=== PATIENT | male | born 1940 | race African-American/Black ===

== ENCOUNTER 2016-10-04 23:04 | Inpatient (IN) | payer MEDICARE, BC ==
[~2016-10-04] VITALS: Ht 182.9 cm; Wt 80.3 kg
[~2016-10-04 23:04] MED LIST: DIPH25CA83 PO; FURO40TA5 PO; SPIR50TA26 PO
[2016-10-05 00:45] VITALS: BP 98/65
[2016-10-05] MEDS ORDERED: DIPHENHYDRAMINE 50MG/ML VIAL IV PRN (01:30)
[2016-10-05] MEDS ORDERED: ONDANSETRON HCL 4MG/2ML VIAL IV PRN (01:30)
[2016-10-05] MEDS ORDERED: PIPERACILLIN/TAZ 3.375G PREMIX 50 ML IV SCH ×2 (01:30→09:30)
[2016-10-05] MEDS ORDERED: HYDRALAZINE 20MG/ML VIAL IV PRN (01:30)
[2016-10-05] MEDS ORDERED: ACETAMINOPHEN 650MG SUPP PR PRN (01:30)
[2016-10-05] MEDS ORDERED: IPRATROPIUM/ALBUTEROL 0.5-3(2.5)MG/3ML NEB HHN PRN (01:30)
[2016-10-05] MEDS ORDERED: NITROGLYCERIN 0.4MG TABLET SL SL PRN (01:30)
[2016-10-05] MEDS ORDERED: CLONIDINE 0.1MG TABLET PO PRN (03:00)
[2016-10-05] MEDS: PIPERACILLIN/TAZ 3.375G PREMIX 50 ML IV SCH ×2 (03:18→11:09)
[2016-10-05 06:44] LABS: BASOPHILS % 0.2 % (0.0-2.0); EOSINOPHILS % 4.6 % (0.0-5.0); LYMPHOCYTES % 13.6 % (20.0-50.0); MEAN CORPUSCULAR HEMOGLOBIN 28.4 pg (28.0-32.0); MEAN CORPUSCULAR HGB CONC 32.4 g/dL (31.0-37.0); MEAN CORPUSCULAR VOLUME 87.4 fL (80.0-94.0); MEAN PLATELET VOLUME 7.7 fl (7.4-10.4); MONOCYTES % 12.9 % (2.0-8.0); NEUTROPHILS % 68.7 % (40.0-76.0); PLATELET 212 x1000/uL (130-400); RED BLOOD CELL COUNT 3.34 mill/uL (4.7-6.1); RED CELL DISTRIBUTION WIDTH 14.8 % (11.6-14.6); WHITE BLOOD COUNT 12.3 x1000/uL (4.5-11.0)
[2016-10-05 07:12] LABS: ANION GAP 12; CALCIUM 9.5 mg/dL (8.5-10.1); CARBON DIOXIDE 25 mEq/L (21-32); CHLORIDE 102 mEq/L (98-107); INDEX HEMOLYSI 1 (1-3); INDEX ICTERIC 1 (1-4); INDEX LIPEMIC 1 (1-3); UREA NITROGEN BLOOD 31 mg/dL (7-21); eGFR > 60 mL/min (>60)
[2016-10-05 08:00] VITALS: BP 98/62
[2016-10-05 08:30] LABS: HEMATOCRIT. 29.2 % (42.0-52.0); HEMOGLOBIN. 9.5 g/dL (14.0-18.0)
[2016-10-05] MEDS ORDERED: ACETYLCYSTEINE 200MG/ML 20% VIAL 4ML PO SCH (09:00)
[2016-10-05] MEDS: ENOXAPARIN 40MG/0.4ML SYR SUBCUT SCH (09:41)
[2016-10-05] MEDS: FAMOTIDINE 20MG/2ML VIAL IV SCH ×2 (09:41→20:43)
[2016-10-05] MEDS: ACETYLCYSTEINE 200MG/ML 20% VIAL 4ML PO SCH ×2 (09:42→20:43)
[2016-10-05 10:30] VITALS: BP 100/68
[2016-10-05] MEDS: DOCUSATE SODIUM 100MG CAPSULE PO SCH (17:40)
[2016-10-05 20:00] VITALS: BP 121/78
[2016-10-05 20:02] VITALS: BP 106/77
[2016-10-05] MEDS: POLYETHYLENE GLYCOL 3350 (17GM) 1 DOSE PACK PO SCH (20:43)
[2016-10-06 08:00] VITALS: BP 100/77
[2016-10-06] MEDS: ENOXAPARIN 40MG/0.4ML SYR SUBCUT SCH (08:14)
[2016-10-06] MEDS: DOCUSATE SODIUM 100MG CAPSULE PO SCH ×2 (08:14→16:20)
[2016-10-06] MEDS: FAMOTIDINE 20MG/2ML VIAL IV SCH ×2 (08:14→22:04)
[2016-10-06] MEDS ORDERED: ACETAMINOPHEN 325MG TABLET PO PRN (12:00)
[2016-10-06] MEDS: TRAMADOL 50MG TABLET PO PRN (12:37)
[2016-10-06] MEDS: MIDODRINE HCL 2.5MG TABLET PO SCH ×2 (12:38→16:20)
[2016-10-06 20:00] VITALS: BP 106/86
[2016-10-06] MEDS: POLYETHYLENE GLYCOL 3350 (17GM) 1 DOSE PACK PO SCH (21:56)
[2016-10-07 06:47] LABS: BASOPHILS % 0.5 % (0.0-2.0); EOSINOPHILS % 3.8 % (0.0-5.0); HEMATOCRIT. 29.2 % (42.0-52.0); HEMOGLOBIN. 9.4 g/dL (14.0-18.0); LYMPHOCYTES % 9.3 % (20.0-50.0); MEAN CORPUSCULAR HEMOGLOBIN 28.2 pg (28.0-32.0); MEAN CORPUSCULAR HGB CONC 32.2 g/dL (31.0-37.0); MEAN CORPUSCULAR VOLUME 87.7 fL (80.0-94.0); MEAN PLATELET VOLUME 7.8 fl (7.4-10.4); NEUTROPHILS % 77.4 % (40.0-76.0); PLATELET 246 x1000/uL (130-400); RED BLOOD CELL COUNT 3.33 mill/uL (4.7-6.1); RED CELL DISTRIBUTION WIDTH 15.7 % (11.6-14.6); WHITE BLOOD COUNT 14.4 x1000/uL (4.5-11.0)
[2016-10-07 07:14] LABS: ALANINE AMINOTRANSFERASE 12 IU/L (13-61); ALBUMIN 2.3 g/dL (3.4-5.0); ANION GAP 12; CALCIUM 9.9 mg/dL (8.5-10.1); CARBON DIOXIDE 26 mEq/L (21-32); CHLORIDE 101 mEq/L (98-107); HDL CHOLESTEROL 28 mg/dL (40-59); INDEX HEMOLYSI 1 (1-3); INDEX ICTERIC 1 (1-4); INDEX LIPEMIC 1 (1-3); IRON 36 ug/dL (50-175); LDL CHOLESTEROL 80 mg/dL (5-100); MAGNESIUM 2.4 mg/dL (1.8-2.4); PHOSPHORUS 1.5 mg/dL (2.5-4.9); TOTAL IRON BINDING CAPACITY 236 ug/dL (250-450); TRIGLYCERIDE 80 mg/dL (0-150); UREA NITROGEN BLOOD 29 mg/dL (7-21); eGFR > 60 mL/min (>60)
[2016-10-07 07:54] LABS: FOLIC ACID (FOLATE) SERUM 6.4 ng/mL (>5.38)
[2016-10-07 08:00] VITALS: BP 99/75
[2016-10-07 08:15] LABS: PROSTRATE SPECIFIC AG TOTAL 0.8 ng/mL (0.0-4.0)
[2016-10-07] MEDS ORDERED: LACTULOSE 20G/30ML UDC PO SCH (10:00)
[2016-10-07] MEDS: FAMOTIDINE 20MG/2ML VIAL IV SCH ×2 (10:15→21:05)
[2016-10-07] MEDS: ENOXAPARIN 40MG/0.4ML SYR SUBCUT SCH (10:15)
[2016-10-07] MEDS: MIDODRINE HCL 2.5MG TABLET PO SCH ×3 (10:15→18:21)
[2016-10-07] MEDS: DOCUSATE SODIUM 100MG CAPSULE PO SCH ×2 (10:15→18:21)
[2016-10-07] MEDS: POTASSIUM-SODIUM PHOSPHATE POWDER PACKET PO SCH ×2 (10:17→18:22)
[2016-10-07] MEDS: BISACODYL 10MG SUPP PR SCH (10:17)
[2016-10-07 13:00] VITALS: BP 99/65
[2016-10-07 18:15] VITALS: BP 110/72
[2016-10-07 20:23] VITALS: BP 105/80
[2016-10-07] MEDS: POLYETHYLENE GLYCOL 3350 (17GM) 1 DOSE PACK PO SCH (21:00)
[2016-10-07] MEDS: IRON SUCROSE COMPLEX 100 MG in SODIUM CHLORIDE 0.9% 100 ML IV SCH (21:05)
[2016-10-07] MEDS: MICONAZOLE NITRATE 2% OINT 71GM TOP SCH (21:06)
[2016-10-08 06:36] LABS: BASOPHILS % 0.3 % (0.0-2.0); EOSINOPHILS % 2.7 % (0.0-5.0); HEMATOCRIT. 29.6 % (42.0-52.0); HEMOGLOBIN. 9.7 g/dL (14.0-18.0); LYMPHOCYTES % 12.7 % (20.0-50.0); MEAN CORPUSCULAR HEMOGLOBIN 28.8 pg (28.0-32.0); MEAN CORPUSCULAR HGB CONC 32.7 g/dL (31.0-37.0); MEAN CORPUSCULAR VOLUME 88.1 fL (80.0-94.0); MEAN PLATELET VOLUME 7.9 fl (7.4-10.4); MONOCYTES % 10.8 % (2.0-8.0); NEUTROPHILS % 73.5 % (40.0-76.0); PLATELET 228 x1000/uL (130-400); RED BLOOD CELL COUNT 3.36 mill/uL (4.7-6.1); RED CELL DISTRIBUTION WIDTH 16.1 % (11.6-14.6); WHITE BLOOD COUNT 12.3 x1000/uL (4.5-11.0)
[2016-10-08 07:51] LABS: ANION GAP 10; CALCIUM 9.9 mg/dL (8.5-10.1); CARBON DIOXIDE 27 mEq/L (21-32); CHLORIDE 100 mEq/L (98-107); INDEX HEMOLYSI 1 (1-3); INDEX ICTERIC 1 (1-4); INDEX LIPEMIC 1 (1-3); PHOSPHORUS 2.2 mg/dL (2.5-4.9); UREA NITROGEN BLOOD 27 mg/dL (7-21); eGFR > 60 mL/min (>60)
[2016-10-08 08:00] VITALS: BP 110/71
[2016-10-08] MEDS: BISACODYL 10MG SUPP PR SCH (09:00)
[2016-10-08] MEDS: FAMOTIDINE 20MG/2ML VIAL IV SCH ×2 (09:02→21:45)
[2016-10-08] MEDS: DOCUSATE SODIUM 100MG CAPSULE PO SCH ×2 (09:02→17:16)
[2016-10-08] MEDS: MIDODRINE HCL 2.5MG TABLET PO SCH ×3 (09:03→17:17)
[2016-10-08] MEDS: POTASSIUM-SODIUM PHOSPHATE POWDER PACKET PO SCH ×2 (09:04→17:17)
[2016-10-08] MEDS: ENOXAPARIN 40MG/0.4ML SYR SUBCUT SCH (09:04)
[2016-10-08] MEDS: MICONAZOLE NITRATE 2% OINT 71GM TOP SCH ×2 (09:07→21:53)
[2016-10-08 19:45] LABS: BASOPHILS % 0.8 % (0.0-2.0); EOSINOPHILS % 1.2 % (0.0-5.0); HEMATOCRIT. 29.7 % (42.0-52.0); HEMOGLOBIN. 9.7 g/dL (14.0-18.0); MEAN CORPUSCULAR HEMOGLOBIN 28.8 pg (28.0-32.0); MEAN CORPUSCULAR HGB CONC 32.6 g/dL (31.0-37.0); MEAN CORPUSCULAR VOLUME 88.6 fL (80.0-94.0); MEAN PLATELET VOLUME 7.6 fl (7.4-10.4); MONOCYTES % 11.1 % (2.0-8.0); NEUTROPHILS % 76.9 % (40.0-76.0); PLATELET 235 x1000/uL (130-400); RED BLOOD CELL COUNT 3.35 mill/uL (4.7-6.1); RED CELL DISTRIBUTION WIDTH 16.5 % (11.6-14.6); WHITE BLOOD COUNT 14.1 x1000/uL (4.5-11.0)
[2016-10-08 20:00] VITALS: BP 119/82
[2016-10-08] MEDS: NEOMY SULF/BACITRAC ZN/POLY OINT 28GM TOP SCH (21:00)
[2016-10-08] MEDS: POLYETHYLENE GLYCOL 3350 (17GM) 1 DOSE PACK PO SCH (21:45)
[2016-10-08] MEDS: IRON SUCROSE COMPLEX 100 MG in SODIUM CHLORIDE 0.9% 100 ML IV SCH (21:45)
[2016-10-09 06:15] LABS: BASOPHILS % 0.6 % (0.0-2.0); HEMATOCRIT. 29.7 % (42.0-52.0); HEMOGLOBIN. 9.7 g/dL (14.0-18.0); LYMPHOCYTES % 11.1 % (20.0-50.0); MEAN CORPUSCULAR HEMOGLOBIN 28.8 pg (28.0-32.0); MEAN CORPUSCULAR HGB CONC 32.7 g/dL (31.0-37.0); MEAN CORPUSCULAR VOLUME 88.1 fL (80.0-94.0); MEAN PLATELET VOLUME 7.7 fl (7.4-10.4); MONOCYTES % 11.8 % (2.0-8.0); NEUTROPHILS % 74.5 % (40.0-76.0); PLATELET 236 x1000/uL (130-400); RED BLOOD CELL COUNT 3.38 mill/uL (4.7-6.1); RED CELL DISTRIBUTION WIDTH 16.8 % (11.6-14.6); WHITE BLOOD COUNT 11.7 x1000/uL (4.5-11.0)
[2016-10-09 08:00] VITALS: BP 88/58
[2016-10-09] MEDS: BISACODYL 10MG SUPP PR SCH (09:00)
[2016-10-09] MEDS: ENOXAPARIN 40MG/0.4ML SYR SUBCUT SCH (09:15)
[2016-10-09] MEDS: FAMOTIDINE 20MG/2ML VIAL IV SCH ×2 (09:15→21:58)
[2016-10-09] MEDS: MIDODRINE HCL 2.5MG TABLET PO SCH ×3 (09:16→17:05)
[2016-10-09] MEDS: POTASSIUM-SODIUM PHOSPHATE POWDER PACKET PO SCH ×2 (09:16→17:05)
[2016-10-09] MEDS: DOCUSATE SODIUM 100MG CAPSULE PO SCH ×2 (09:16→17:04)
[2016-10-09] MEDS: NEOMY SULF/BACITRAC ZN/POLY OINT 28GM TOP SCH ×2 (09:17→21:00)
[2016-10-09] MEDS: MICONAZOLE NITRATE 2% OINT 71GM TOP SCH ×2 (09:25→22:07)
[2016-10-09 20:00] VITALS: BP 106/69
[2016-10-09] MEDS: POLYETHYLENE GLYCOL 3350 (17GM) 1 DOSE PACK PO SCH (21:58)
[2016-10-09] MEDS: IRON SUCROSE COMPLEX 100 MG in SODIUM CHLORIDE 0.9% 100 ML IV SCH (21:59)
[2016-10-10 06:35] LABS: BASOPHILS % 0.7 % (0.0-2.0); EOSINOPHILS % 1.8 % (0.0-5.0); HEMATOCRIT. 28.3 % (42.0-52.0); HEMOGLOBIN. 9.3 g/dL (14.0-18.0); LYMPHOCYTES % 11.9 % (20.0-50.0); MEAN CORPUSCULAR HEMOGLOBIN 29.1 pg (28.0-32.0); MEAN CORPUSCULAR HGB CONC 32.9 g/dL (31.0-37.0); MEAN CORPUSCULAR VOLUME 88.2 fL (80.0-94.0); MONOCYTES % 12.2 % (2.0-8.0); NEUTROPHILS % 73.4 % (40.0-76.0); PLATELET 235 x1000/uL (130-400); RED BLOOD CELL COUNT 3.21 mill/uL (4.7-6.1); RED CELL DISTRIBUTION WIDTH 16.6 % (11.6-14.6)
[2016-10-10 07:06] LABS: ANION GAP 12; CARBON DIOXIDE 24 mEq/L (21-32); CHLORIDE 102 mEq/L (98-107); INDEX HEMOLYSI 1 (1-3); INDEX ICTERIC 1 (1-4); INDEX LIPEMIC 1 (1-3); MAGNESIUM 2.2 mg/dL (1.8-2.4); PHOSPHORUS 2.6 mg/dL (2.5-4.9); UREA NITROGEN BLOOD 31 mg/dL (7-21); eGFR > 60 mL/min (>60)
[2016-10-10 07:19] LABS: CALCIUM 9.7 mg/dL (8.5-10.1)
[2016-10-10 08:00] VITALS: BP 106/71
[2016-10-10] MEDS: DOCUSATE SODIUM 100MG CAPSULE PO SCH ×2 (09:16→17:23)
[2016-10-10] MEDS: MIDODRINE HCL 2.5MG TABLET PO SCH ×3 (09:16→17:23)
[2016-10-10] MEDS: ENOXAPARIN 40MG/0.4ML SYR SUBCUT SCH (09:17)
[2016-10-10] MEDS: TRAMADOL 50MG TABLET PO PRN (09:17)
[2016-10-10] MEDS: FAMOTIDINE 20MG/2ML VIAL IV SCH ×2 (09:17→22:09)
[2016-10-10] MEDS: MICONAZOLE NITRATE 2% OINT 71GM TOP SCH ×2 (09:18→21:00)
[2016-10-10] MEDS: BISACODYL 10MG SUPP PR SCH (09:18)
[2016-10-10] MEDS: NEOMY SULF/BACITRAC ZN/POLY OINT 28GM TOP SCH (09:19)
[2016-10-10 10:07] LABS: 25-HYDROXY VITAMIN D3 7.9 ng/mL (.)
[2016-10-10] MEDS: ERGOCALCIFEROL 50000UNITS CAPSULE PO SCH (13:40)
[2016-10-10] MEDS: GABAPENTIN 100MG CAPSULE PO SCH ×2 (13:41→22:09)
[2016-10-10 20:00] VITALS: BP 106/65
[2016-10-10] MEDS: IRON SUCROSE COMPLEX 100 MG in SODIUM CHLORIDE 0.9% 100 ML IV SCH (22:09)
[2016-10-10] MEDS: POLYETHYLENE GLYCOL 3350 (17GM) 1 DOSE PACK PO SCH (22:09)
[2016-10-11] MEDS: GABAPENTIN 100MG CAPSULE PO SCH ×3 (06:56→22:03)
[2016-10-11 08:00] VITALS: BP 97/66
[2016-10-11] MEDS: BISACODYL 10MG SUPP PR SCH (09:00)
[2016-10-11] MEDS: MIDODRINE HCL 2.5MG TABLET PO SCH ×3 (09:32→18:10)
[2016-10-11] MEDS: FAMOTIDINE 20MG/2ML VIAL IV SCH (09:33)
[2016-10-11] MEDS: DOCUSATE SODIUM 100MG CAPSULE PO SCH ×2 (09:33→18:10)
[2016-10-11] MEDS: ENOXAPARIN 40MG/0.4ML SYR SUBCUT SCH (09:33)
[2016-10-11] MEDS: MICONAZOLE NITRATE 2% OINT 71GM TOP SCH ×2 (09:44→22:03)
[2016-10-11 12:40] VITALS: BP 88/51
[2016-10-11 17:34] VITALS: BP 115/71
[2016-10-11] MEDS: FERROUS SULFATE 325MG TABLET PO SCH (18:10)
[2016-10-11 20:00] VITALS: BP 105/67
[2016-10-11] MEDS: POLYETHYLENE GLYCOL 3350 (17GM) 1 DOSE PACK PO SCH (22:03)
[2016-10-11] MEDS: FAMOTIDINE 20MG TABLET PO SCH (22:03)
[2016-10-12] MEDS: GABAPENTIN 100MG CAPSULE PO SCH ×3 (05:54→21:29)
[2016-10-12 06:34] LABS: BASOPHILS % 0.8 % (0.0-2.0); HEMATOCRIT. 27.6 % (42.0-52.0); LYMPHOCYTES % 13.4 % (20.0-50.0); MEAN CORPUSCULAR HGB CONC 32.5 g/dL (31.0-37.0); MEAN CORPUSCULAR VOLUME 89.2 fL (80.0-94.0); MEAN PLATELET VOLUME 8.1 fl (7.4-10.4); NEUTROPHILS % 72.8 % (40.0-76.0); PLATELET 219 x1000/uL (130-400); RED CELL DISTRIBUTION WIDTH 17.3 % (11.6-14.6); WHITE BLOOD COUNT 11.2 x1000/uL (4.5-11.0)
[2016-10-12 07:14] LABS: CALCIUM 9.7 mg/dL (8.5-10.1)
[2016-10-12 08:00] VITALS: BP 107/70
[2016-10-12] MEDS: FERROUS SULFATE 325MG TABLET PO SCH ×2 (09:39→18:36)
[2016-10-12] MEDS: MIDODRINE HCL 2.5MG TABLET PO SCH ×3 (09:39→18:37)
[2016-10-12] MEDS: DOCUSATE SODIUM 100MG CAPSULE PO SCH ×2 (09:39→18:36)
[2016-10-12] MEDS: BISACODYL 10MG SUPP PR SCH (09:39)
[2016-10-12] MEDS: FAMOTIDINE 20MG TABLET PO SCH (09:39)
[2016-10-12] MEDS: ENOXAPARIN 40MG/0.4ML SYR SUBCUT SCH (09:40)
[2016-10-12] MEDS: MICONAZOLE NITRATE 2% OINT 71GM TOP SCH ×2 (09:41→21:29)
[2016-10-12] MEDS: TAMSULOSIN HCL 0.4MG SR CAPSULE PO SCH (18:37)
[2016-10-12] MEDS: DEXT 5%/0.9% NACL 1,000 ML IV SCH (18:38)
[2016-10-12 20:37] VITALS: BP 105/74
[2016-10-12] MEDS: POLYETHYLENE GLYCOL 3350 (17GM) 1 DOSE PACK PO SCH (21:00)
[2016-10-12 23:16] LABS: CALCIUM 9.3 mg/dL (8.5-10.1)
[2016-10-13 05:34] LABS: BASOPHILS % 0.8 % (0.0-2.0); EOSINOPHILS % 2.1 % (0.0-5.0); HEMATOCRIT. 26.7 % (42.0-52.0); HEMOGLOBIN. 8.8 g/dL (14.0-18.0); LYMPHOCYTES % 13.6 % (20.0-50.0); MEAN CORPUSCULAR HEMOGLOBIN 29.3 pg (28.0-32.0); MEAN CORPUSCULAR HGB CONC 33.2 g/dL (31.0-37.0); MEAN CORPUSCULAR VOLUME 88.3 fL (80.0-94.0); MEAN PLATELET VOLUME 7.4 fl (7.4-10.4); MONOCYTES % 10.2 % (2.0-8.0); NEUTROPHILS % 73.3 % (40.0-76.0); PLATELET 177 x1000/uL (130-400); RED BLOOD CELL COUNT 3.02 mill/uL (4.7-6.1); RED CELL DISTRIBUTION WIDTH 17.1 % (11.6-14.6); WHITE BLOOD COUNT 8.9 x1000/uL (4.5-11.0)
[2016-10-13] MEDS: GABAPENTIN 100MG CAPSULE PO SCH ×3 (06:07→22:04)
[2016-10-13 06:52] LABS: CALCIUM 9.4 mg/dL (8.5-10.1)
[2016-10-13 08:00] VITALS: BP 110/69
[2016-10-13] MEDS: DOCUSATE SODIUM 100MG CAPSULE PO SCH ×2 (08:18→16:35)
[2016-10-13] MEDS: FERROUS SULFATE 325MG TABLET PO SCH ×2 (08:18→16:36)
[2016-10-13] MEDS: FAMOTIDINE 20MG TABLET PO SCH (08:18)
[2016-10-13] MEDS: MIDODRINE HCL 2.5MG TABLET PO SCH ×3 (08:19→16:36)
[2016-10-13] MEDS: TAMSULOSIN HCL 0.4MG SR CAPSULE PO SCH (08:19)
[2016-10-13] MEDS: ENOXAPARIN 40MG/0.4ML SYR SUBCUT SCH (08:20)
[2016-10-13] MEDS: MICONAZOLE NITRATE 2% OINT 71GM TOP SCH ×2 (08:20→22:04)
[2016-10-13] MEDS: DEXT 5%/0.9% NACL 1,000 ML IV SCH (08:20)
[2016-10-13] MEDS: BISACODYL 10MG SUPP PR SCH (08:21)
[2016-10-13 20:00] VITALS: BP 86/65
[2016-10-13 21:00] VITALS: BP 103/73
[2016-10-13] MEDS: POLYETHYLENE GLYCOL 3350 (17GM) 1 DOSE PACK PO SCH (21:00)
[2016-10-13 21:28] LABS: INR 1.1; PARTIAL THROMBOPLASTIN TIME 26.8 sec (24.0-34.0); PROTHROMBIN TIME 11.4 sec
[2016-10-13 21:41] LABS: AMMONIA 51 uMol/L (<32)
[2016-10-13 22:04] LABS: HEPATITIS B SURFACE ANTIGEN NEGATIVE
[2016-10-13 22:31] LABS: HEPATITIS C VIR.AB 0.12 INDEXVAL (0.00-0.80)
[2016-10-13 22:32] LABS: HEPATITIS B CORE AB IGM NEGATIVE
[2016-10-13 22:33] LABS: HEPATITIS A AB IGM NEGATIVE (NEGATIVE)
[2016-10-14] MEDS: DEXT 5%/0.9% NACL 1,000 ML IV SCH ×2 (00:20→15:58)
[2016-10-14] MEDS: GABAPENTIN 100MG CAPSULE PO SCH ×3 (06:00→21:39)
[2016-10-14] MEDS ORDERED: ALBUMIN HUMAN 25GM/100ML (25%) IV NR ×3 (07:00→20:00)
[2016-10-14 07:32] LABS: BASOPHILS % 0.5 % (0.0-2.0); HEMATOCRIT. 27.4 % (42.0-52.0); MEAN CORPUSCULAR HEMOGLOBIN 29.1 pg (28.0-32.0); MEAN CORPUSCULAR VOLUME 88.2 fL (80.0-94.0); MEAN PLATELET VOLUME 7.4 fl (7.4-10.4); MONOCYTES % 9.4 % (2.0-8.0); NEUTROPHILS % 77.1 % (40.0-76.0); PLATELET 164 x1000/uL (130-400); RED BLOOD CELL COUNT 3.11 mill/uL (4.7-6.1); WHITE BLOOD COUNT 9.2 x1000/uL (4.5-11.0)
[2016-10-14 08:00] VITALS: BP 111/70
[2016-10-14 08:08] LABS: ALBUMIN 2.3 g/dL (3.4-5.0); ANION GAP 10; CARBON DIOXIDE 25 mEq/L (21-32); CHLORIDE 104 mEq/L (98-107); INDEX HEMOLYSI 1 (1-3); INDEX ICTERIC 1 (1-4); INDEX LIPEMIC 1 (1-3); MAGNESIUM 2.2 mg/dL (1.8-2.4); UREA NITROGEN BLOOD 28 mg/dL (7-21)
[2016-10-14 08:14] LABS: ALANINE AMINOTRANSFERASE 16 IU/L (13-61); PHOSPHORUS 2.3 mg/dL (2.5-4.9); eGFR > 60 mL/min (>60)
[2016-10-14] MEDS: MIDODRINE HCL 2.5MG TABLET PO SCH ×3 (09:00→16:53)
[2016-10-14] MEDS: BISACODYL 10MG SUPP PR SCH (09:00)
[2016-10-14] MEDS: DOCUSATE SODIUM 100MG CAPSULE PO SCH ×2 (09:00→16:51)
[2016-10-14] MEDS: ENOXAPARIN 40MG/0.4ML SYR SUBCUT SCH (09:00)
[2016-10-14] MEDS: FERROUS SULFATE 325MG TABLET PO SCH ×2 (09:00→16:51)
[2016-10-14] MEDS: TAMSULOSIN HCL 0.4MG SR CAPSULE PO SCH (13:22)
[2016-10-14] MEDS: FAMOTIDINE 20MG TABLET PO SCH (13:22)
[2016-10-14] MEDS: MICONAZOLE NITRATE 2% OINT 71GM TOP SCH ×2 (13:22→21:42)
[2016-10-14 13:37] LABS: BODY FLUID MONOCYTES 40 %
[2016-10-14 13:42] LABS: BODY FLUID WBC 215 /cu mm (0-200)
[2016-10-14] MEDS ORDERED: SODIUM PHOS,M-BASIC-D-BASIC 20 MM in DEXT 5% WATER 243.3333 ML IV NR (15:30)
[2016-10-14 20:00] VITALS: BP 95/61
[2016-10-14] MEDS: POLYETHYLENE GLYCOL 3350 (17GM) 1 DOSE PACK PO SCH (21:39)
[2016-10-15 06:54] LABS: BASOPHILS % 0.5 % (0.0-2.0); EOSINOPHILS % 1.9 % (0.0-5.0); HEMOGLOBIN. 8.6 g/dL (14.0-18.0); LYMPHOCYTES % 13.6 % (20.0-50.0); MEAN CORPUSCULAR HEMOGLOBIN 29.4 pg (28.0-32.0); MEAN CORPUSCULAR HGB CONC 33.1 g/dL (31.0-37.0); MEAN CORPUSCULAR VOLUME 88.9 fL (80.0-94.0); MEAN PLATELET VOLUME 7.9 fl (7.4-10.4); MONOCYTES % 8.9 % (2.0-8.0); NEUTROPHILS % 75.1 % (40.0-76.0); PLATELET 134 x1000/uL (130-400); RED BLOOD CELL COUNT 2.92 mill/uL (4.7-6.1)
[2016-10-15] MEDS: GABAPENTIN 100MG CAPSULE PO SCH ×3 (07:07→21:31)
[2016-10-15] MEDS: DEXT 5%/0.9% NACL 1,000 ML IV SCH (07:10)
[2016-10-15 08:00] VITALS: BP 102/62
[2016-10-15 08:05] LABS: CHLORIDE 105 mEq/L (98-107); INDEX HEMOLYSI 1 (1-3); INDEX ICTERIC 1 (1-4); INDEX LIPEMIC 1 (1-3)
[2016-10-15 08:26] LABS: ANION GAP 13; CALCIUM 9.5 mg/dL (8.5-10.1); CARBON DIOXIDE 22 mEq/L (21-32); PHOSPHORUS 2.3 mg/dL (2.5-4.9); UREA NITROGEN BLOOD 20 mg/dL (7-21); eGFR > 60 mL/min (>60)
[2016-10-15] MEDS: FAMOTIDINE 20MG TABLET PO SCH (08:28)
[2016-10-15] MEDS: DOCUSATE SODIUM 100MG CAPSULE PO SCH ×2 (08:28→17:06)
[2016-10-15] MEDS: ENOXAPARIN 40MG/0.4ML SYR SUBCUT SCH (08:29)
[2016-10-15] MEDS: MIDODRINE HCL 2.5MG TABLET PO SCH ×3 (08:29→17:06)
[2016-10-15] MEDS: FERROUS SULFATE 325MG TABLET PO SCH ×2 (08:29→17:07)
[2016-10-15] MEDS: TAMSULOSIN HCL 0.4MG SR CAPSULE PO SCH (08:29)
[2016-10-15] MEDS: MICONAZOLE NITRATE 2% OINT 71GM TOP SCH ×2 (08:32→21:32)
[2016-10-15] MEDS: BISACODYL 10MG SUPP PR SCH (08:38)
[2016-10-15] MEDS: TRAMADOL 50MG TABLET PO PRN (17:07)
[2016-10-15 18:00] VITALS: BP_SYST 108; BP_SYST 65; BP_SYST 98; BP_DIAS 38; BP_DIAS 66; BP_DIAS 79
[2016-10-15 19:00] VITALS: BP 88/52
[2016-10-15] MEDS: POLYETHYLENE GLYCOL 3350 (17GM) 1 DOSE PACK PO SCH (21:31)
[2016-10-16] MEDS: GABAPENTIN 100MG CAPSULE PO SCH ×3 (05:38→21:24)
[2016-10-16 06:18] LABS: BASOPHILS % 0.6 % (0.0-2.0); HEMATOCRIT. 27.2 % (42.0-52.0); HEMOGLOBIN. 8.9 g/dL (14.0-18.0); LYMPHOCYTES % 15.6 % (20.0-50.0); MEAN CORPUSCULAR HEMOGLOBIN 29.4 pg (28.0-32.0); MEAN CORPUSCULAR VOLUME 89.3 fL (80.0-94.0); MEAN PLATELET VOLUME 7.9 fl (7.4-10.4); NEUTROPHILS % 72.8 % (40.0-76.0); PLATELET 127 x1000/uL (130-400); RED BLOOD CELL COUNT 3.04 mill/uL (4.7-6.1); WHITE BLOOD COUNT 7.5 x1000/uL (4.5-11.0)
[2016-10-16 06:51] LABS: CALCIUM 9.6 mg/dL (8.5-10.1); CARBON DIOXIDE 24 mEq/L (21-32); CHLORIDE 104 mEq/L (98-107); INDEX HEMOLYSI 1 (1-3); INDEX ICTERIC 1 (1-4); INDEX LIPEMIC 1 (1-3); UREA NITROGEN BLOOD 21 mg/dL (7-21); eGFR > 60 mL/min (>60)
[2016-10-16 06:57] LABS: ANION GAP 11; MAGNESIUM 1.8 mg/dL (1.8-2.4); PHOSPHORUS 1.8 mg/dL (2.5-4.9)
[2016-10-16 08:00] VITALS: BP 96/61
[2016-10-16] MEDS: FAMOTIDINE 20MG TABLET PO SCH (08:10)
[2016-10-16] MEDS: ENOXAPARIN 40MG/0.4ML SYR SUBCUT SCH (08:10)
[2016-10-16] MEDS: FERROUS SULFATE 325MG TABLET PO SCH ×2 (08:10→16:54)
[2016-10-16] MEDS: TAMSULOSIN HCL 0.4MG SR CAPSULE PO SCH (08:10)
[2016-10-16] MEDS: DOCUSATE SODIUM 100MG CAPSULE PO SCH ×2 (08:10→16:54)
[2016-10-16] MEDS: MIDODRINE HCL 2.5MG TABLET PO SCH ×3 (08:11→16:54)
[2016-10-16] MEDS: BISACODYL 10MG SUPP PR SCH (08:11)
[2016-10-16] MEDS: MICONAZOLE NITRATE 2% OINT 71GM TOP SCH ×2 (08:12→21:25)
[2016-10-16] MEDS: TRAMADOL 50MG TABLET PO PRN (10:16)
[2016-10-16] MEDS ORDERED: SODIUM POLYSTYRENE SULFONATE 15 G/60 ML BOT PO NR (15:15)
[2016-10-16] MEDS ORDERED: SODIUM PHOS,M-BASIC-D-BASIC 15 MM in DEXT 5% WATER 245 ML IV NR (15:15)
[2016-10-16 20:00] VITALS: BP 100/69
[2016-10-16] MEDS: POLYETHYLENE GLYCOL 3350 (17GM) 1 DOSE PACK PO SCH (21:28)
[2016-10-17] MEDS: GABAPENTIN 100MG CAPSULE PO SCH ×3 (06:24→21:30)
[2016-10-17 06:36] LABS: BASOPHILS % 0.6 % (0.0-2.0); EOSINOPHILS % 2.5 % (0.0-5.0); HEMATOCRIT. 26.3 % (42.0-52.0); HEMOGLOBIN. 8.9 g/dL (14.0-18.0); LYMPHOCYTES % 13.6 % (20.0-50.0); MEAN CORPUSCULAR HEMOGLOBIN 30.1 pg (28.0-32.0); MEAN CORPUSCULAR HGB CONC 33.9 g/dL (31.0-37.0); MEAN CORPUSCULAR VOLUME 88.7 fL (80.0-94.0); MONOCYTES % 9.7 % (2.0-8.0); NEUTROPHILS % 73.6 % (40.0-76.0); PLATELET 108 x1000/uL (130-400); RED BLOOD CELL COUNT 2.97 mill/uL (4.7-6.1); RED CELL DISTRIBUTION WIDTH 17.1 % (11.6-14.6); WHITE BLOOD COUNT 7.7 x1000/uL (4.5-11.0)
[2016-10-17 07:22] LABS: ANION GAP 10; CALCIUM 9.5 mg/dL (8.5-10.1); CARBON DIOXIDE 26 mEq/L (21-32); CHLORIDE 102 mEq/L (98-107); INDEX HEMOLYSI 1 (1-3); INDEX ICTERIC 1 (1-4); INDEX LIPEMIC 1 (1-3); MAGNESIUM 1.8 mg/dL (1.8-2.4); PHOSPHORUS 2.1 mg/dL (2.5-4.9); UREA NITROGEN BLOOD 21 mg/dL (7-21); eGFR > 60 mL/min (>60)
[2016-10-17 08:00] VITALS: BP 92/60
[2016-10-17] MEDS: FAMOTIDINE 20MG TABLET PO SCH ×2 (08:12→21:31)
[2016-10-17] MEDS: FERROUS SULFATE 325MG TABLET PO SCH ×2 (08:12→17:59)
[2016-10-17] MEDS: DOCUSATE SODIUM 100MG CAPSULE PO SCH ×2 (08:12→17:59)
[2016-10-17] MEDS: TAMSULOSIN HCL 0.4MG SR CAPSULE PO SCH (08:13)
[2016-10-17] MEDS: ENOXAPARIN 40MG/0.4ML SYR SUBCUT SCH (08:13)
[2016-10-17] MEDS: MIDODRINE HCL 2.5MG TABLET PO SCH ×3 (08:13→17:59)
[2016-10-17] MEDS: BISACODYL 10MG SUPP PR SCH (08:15)
[2016-10-17] MEDS: MICONAZOLE NITRATE 2% OINT 71GM TOP SCH ×2 (08:19→21:00)
[2016-10-17] MEDS ORDERED: SODIUM PHOS,M-BASIC-D-BASIC 15 MM in DEXT 5% WATER 245 ML IV NR (11:00)
[2016-10-17] MEDS: TRAMADOL 50MG TABLET PO PRN (13:05)
[2016-10-17] MEDS: ERGOCALCIFEROL 50000UNITS CAPSULE PO SCH (13:07)
[2016-10-17 20:00] VITALS: BP 95/63
[2016-10-17] MEDS: POLYETHYLENE GLYCOL 3350 (17GM) 1 DOSE PACK PO SCH (21:31)
[2016-10-18] MEDS: GABAPENTIN 100MG CAPSULE PO SCH ×3 (05:55→23:47)
[2016-10-18 06:53] LABS: BASOPHILS % 0.7 % (0.0-2.0); EOSINOPHILS % 3.3 % (0.0-5.0); HEMOGLOBIN. 8.5 g/dL (14.0-18.0); LYMPHOCYTES % 14.8 % (20.0-50.0); MEAN CORPUSCULAR HEMOGLOBIN 29.2 pg (28.0-32.0); MEAN CORPUSCULAR HGB CONC 32.8 g/dL (31.0-37.0); MEAN CORPUSCULAR VOLUME 88.9 fL (80.0-94.0); MEAN PLATELET VOLUME 8.7 fl (7.4-10.4); MONOCYTES % 9.6 % (2.0-8.0); NEUTROPHILS % 71.6 % (40.0-76.0); PLATELET 116 x1000/uL (130-400); RED BLOOD CELL COUNT 2.92 mill/uL (4.7-6.1); RED CELL DISTRIBUTION WIDTH 17.1 % (11.6-14.6); WHITE BLOOD COUNT 7.7 x1000/uL (4.5-11.0)
[2016-10-18 07:45] LABS: ANION GAP 8; CALCIUM 9.2 mg/dL (8.5-10.1); CARBON DIOXIDE 27 mEq/L (21-32); CHLORIDE 103 mEq/L (98-107); INDEX HEMOLYSI 1 (1-3); INDEX ICTERIC 1 (1-4); INDEX LIPEMIC 1 (1-3); MAGNESIUM 1.9 mg/dL (1.8-2.4); PHOSPHORUS 1.9 mg/dL (2.5-4.9); UREA NITROGEN BLOOD 23 mg/dL (7-21); eGFR > 60 mL/min (>60)
[2016-10-18 08:00] VITALS: BP 95/57
[2016-10-18] MEDS: BISACODYL 10MG SUPP PR SCH (09:00)
[2016-10-18] MEDS: FERROUS SULFATE 325MG TABLET PO SCH ×2 (09:03→18:37)
[2016-10-18] MEDS: FAMOTIDINE 20MG TABLET PO SCH ×2 (09:03→23:47)
[2016-10-18] MEDS: MIDODRINE HCL 2.5MG TABLET PO SCH ×3 (09:04→18:38)
[2016-10-18] MEDS: TAMSULOSIN HCL 0.4MG SR CAPSULE PO SCH (09:04)
[2016-10-18] MEDS: DOCUSATE SODIUM 100MG CAPSULE PO SCH ×2 (09:04→18:37)
[2016-10-18] MEDS: ENOXAPARIN 40MG/0.4ML SYR SUBCUT SCH (09:05)
[2016-10-18] MEDS: MICONAZOLE NITRATE 2% OINT 71GM TOP SCH ×2 (09:09→23:48)
[2016-10-18] MEDS: NYSTATIN POWDER 15GM TOP SCH ×2 (09:09→18:42)
[2016-10-18] MEDS: POLYETHYLENE GLYCOL 3350 (17GM) 1 DOSE PACK PO SCH (21:00)
[2016-10-19] MEDS: TRAMADOL 50MG TABLET PO PRN (00:09)
[2016-10-19] MEDS: GABAPENTIN 100MG CAPSULE PO SCH (06:00)
[2016-10-19 08:00] VITALS: BP 100/65
[2016-10-19] MEDS: FERROUS SULFATE 325MG TABLET PO SCH (08:52)
[2016-10-19] MEDS: MIDODRINE HCL 2.5MG TABLET PO SCH (08:53)
[2016-10-19] MEDS: TAMSULOSIN HCL 0.4MG SR CAPSULE PO SCH (08:53)
[2016-10-19] MEDS: FAMOTIDINE 20MG TABLET PO SCH (08:54)
[2016-10-19] MEDS: BISACODYL 10MG SUPP PR SCH (08:54)
[2016-10-19] MEDS: ENOXAPARIN 40MG/0.4ML SYR SUBCUT SCH (08:54)
[2016-10-19] MEDS: NYSTATIN POWDER 15GM TOP SCH (08:55)
[2016-10-19] MEDS: MICONAZOLE NITRATE 2% OINT 71GM TOP SCH (08:55)
[2016-10-19] MEDS: DOCUSATE SODIUM 100MG CAPSULE PO SCH (09:01)
[2016-10-19 12:33] VITALS: BP 100/64
== END 2016-10-19 13:55 | disposition home health service (06) | DRG 91 ==
PROVIDERS: ADMIT Physical Medicine & Rehabilitation Spinal Cord Injury Medicine; ATTEND Internal Medicine
PROC: 0W9G3ZZ Drainage of Peritoneal Cavity, Percutaneous Approach (ICD-10-PCS; principal; 2016-10-14)
DX: G72.81 Critical illness myopathy (principal); E43 Unspecified severe protein-calorie malnutrition; K43.6 Other and unspecified ventral hernia with obstruction, without gangrene; E87.1 Hypo-osmolality and hyponatremia; I47.2 Ventricular tachycardia; N17.9 Acute kidney failure, unspecified; K76.6 Portal hypertension; N13.8 Other obstructive and reflux uropathy; R53.81 Other malaise; F10.21 Alcohol dependence, in remission; D64.9 Anemia, unspecified; D72.829 Elevated white blood cell count, unspecified; I11.9 Hypertensive heart disease without heart failure; K70.31 Alcoholic cirrhosis of liver with ascites; E78.00 Pure hypercholesterolemia, unspecified; R73.9 Hyperglycemia, unspecified; E55.9 Vitamin D deficiency, unspecified; E87.5 Hyperkalemia; N40.1 Benign prostatic hyperplasia with lower urinary tract symptoms; F39 Unspecified mood [affective] disorder; R26.9 Unspecified abnormalities of gait and mobility; N62 Hypertrophy of breast; M71.22 Synovial cyst of popliteal space [Baker], left knee; R16.1 Splenomegaly, not elsewhere classified; R58 Hemorrhage, not elsewhere classified; Z86.79 Personal history of other diseases of the circulatory system; Z68.24 Body mass index [BMI] 24.0-24.9, adult; Z87.891 Personal history of nicotine dependence
CPT/HCPCS: 36415; 49083; 74000; 76770; 80048; 80053; 80061; 82040; 82140; 82306; 82607; 82728; 82746; 83036; 83540; 83550; 83735; 84100; 84134; 84153; 84443; 84630; 85025; 85610; 85730; 86705; 86709; 86803; 87340; 89050; 93970; 97110; 97116; 97163; 97167; 97530; 97535; A6261; J1650; J2543; J3490; J7042; J7050; J7060; J7608; P9047; A4315; A5200

== ENCOUNTER 2016-10-22 14:23 | Inpatient (IN) | payer MEDICARE, BC ==
[~2016-10-22] VITALS: Ht 180.3 cm; Wt 77.1 kg
[2016-10-22 22:58] LABS: BASOPHILS % 0.8 % (0.0-2.0); LYMPHOCYTES % 9.6 % (20.0-50.0); MEAN CORPUSCULAR HEMOGLOBIN 29.7 pg (28.0-32.0); MEAN CORPUSCULAR VOLUME 89.5 fL (80.0-94.0); MEAN PLATELET VOLUME 7.6 fl (7.4-10.4); NEUTROPHILS % 72.6 % (40.0-76.0); PLATELET 197 x1000/uL (130-400); RED BLOOD CELL COUNT 3.36 mill/uL (4.7-6.1); RED CELL DISTRIBUTION WIDTH 16.1 % (11.6-14.6)
[2016-10-22 23:03] LABS: CHLORIDE 99 mEq/L (98-107)
[2016-10-22 23:05] LABS: INR 1.1; PROTHROMBIN TIME 11.8 sec
[2016-10-22 23:12] LABS: CARBON DIOXIDE 26 mEq/L (21-32)
[2016-10-22 23:38] LABS: CLARITY URINE CLOUDY (CLEAR); COLOR URINE DARK YELLOW (YELLOW); GLUCOSE URINE NEGATIVE (NEGATIVE); KETONES URINE TRACE (NEGATIVE); LEUKOCYTE ESTERASE URINE 2+ (NEGATIVE); NITRITE URINE NEGATIVE (NEGATIVE); OCCULT BLOOD URINE 2+ (NEGATIVE); PROTEIN URINE NEGATIVE (NEGATIVE)
[2016-10-23] MEDS ORDERED: PIPERACILLIN/TAZOBACTAM 3.375GM/50ML PREMIX IV ONE (01:15)
[2016-10-23] MEDS ORDERED: SODIUM POLYSTYRENE SULFONATE 15 G/60 ML BOT PO ONE (01:15)
[2016-10-23] MEDS ORDERED: PIPERACILLIN/TAZ 3.375G PREMIX 50 ML IV NR (01:45)
[2016-10-23] MEDS: SODIUM CHLORIDE 0.9% 1,000 ML IV SCH (05:50)
[2016-10-23] MEDS ORDERED: MORPHINE SULFATE 4 MG/ML CPJ (NOT FOR IM USE) IV PRN (06:00)
[2016-10-23] MEDS ORDERED: ONDANSETRON HCL 4MG/2ML VIAL IV PRN ×2 (06:00→10:15)
[2016-10-23 06:06] LABS: HEMATOCRIT. 30.9 % (42.0-52.0); HEMOGLOBIN. 10.2 g/dL (14.0-18.0); MEAN CORPUSCULAR HEMOGLOBIN 29.7 pg (28.0-32.0); MEAN CORPUSCULAR VOLUME 89.8 fL (80.0-94.0); RED BLOOD CELL COUNT 3.45 mill/uL (4.7-6.1); RED CELL DISTRIBUTION WIDTH 16.5 % (11.6-14.6)
[2016-10-23 06:11] LABS: CHLORIDE 101 mEq/L (98-107)
[2016-10-23 06:20] LABS: CARBON DIOXIDE 27 mEq/L (21-32)
[2016-10-23 07:01] LABS: PLATELET ESTIMATE NORMAL
[2016-10-23 07:02] LABS: MEAN PLATELET VOLUME 8.1 fl (7.4-10.4); PLATELET 150 x1000/uL (130-400)
[2016-10-23 09:20] VITALS: BP 118/72
[2016-10-23] MEDS ORDERED: ACETAMINOPHEN 325MG TABLET PO PRN (10:15)
[2016-10-23] MEDS ORDERED: TRAMADOL 50MG TABLET PO PRN (10:15)
[2016-10-23] MEDS ORDERED: IPRATROPIUM/ALBUTEROL 0.5-3(2.5)MG/3ML NEB INH PRN (10:15)
[2016-10-23] MEDS ORDERED: NA PHOS,M-B/NA PHOS,DI-BA ENEMA 118ML PR PRN (10:15)
[2016-10-23] MEDS ORDERED: GUAIFENESIN 200MG/10ML SUGAR FREE UDC PO PRN (10:15)
[2016-10-23] MEDS: ASCORBIC ACID 500 MG TABLET PO SCH ×2 (11:45→22:04)
[2016-10-23] MEDS: ZINC SULFATE 220 MG ( 50 ) CAPSULE PO SCH (11:45)
[2016-10-23] MEDS: PANTOPRAZOLE SODIUM 40 MG/VIAL IV SCH (11:46)
[2016-10-23 12:00] VITALS: BP 102/66
[2016-10-23 12:04] VITALS: BP 116/74
[2016-10-23] MEDS: MIDODRINE HCL 2.5MG TABLET PO SCH ×2 (15:35→18:06)
[2016-10-23 16:00] VITALS: BP 98/72
[2016-10-23] MEDS ORDERED: ERGOCALCIFEROL 50000UNITS CAPSULE PO SCH (19:00)
[2016-10-23] MEDS ORDERED: SODIUM POLYSTYRENE SULFONATE 15 G/60 ML BOT PO SCH (19:15)
[2016-10-23 20:00] VITALS: BP 110/74
[2016-10-23] MEDS ORDERED: ZOLPIDEM TARTRATE 5MG TABLET PO PRN (21:00)
[2016-10-23] MEDS: GABAPENTIN 100MG CAPSULE PO SCH (22:04)
[2016-10-23] MEDS: CEFTRIAXONE 1 G PREMIX 50 ML IV SCH (22:04)
[2016-10-24] VITALS: BP 110/79
[2016-10-24 04:00] VITALS: BP 100/67
[2016-10-24 08:00] VITALS: BP 118/86
[2016-10-24] MEDS: SODIUM CHLORIDE 0.9% 1,000 ML IV SCH (08:30)
[2016-10-24] MEDS: PANTOPRAZOLE SODIUM 40 MG/VIAL IV SCH (08:30)
[2016-10-24] MEDS: GABAPENTIN 100MG CAPSULE PO SCH ×3 (08:31→17:08)
[2016-10-24] MEDS: ZINC SULFATE 220 MG ( 50 ) CAPSULE PO SCH (08:32)
[2016-10-24] MEDS: ASCORBIC ACID 500 MG TABLET PO SCH ×2 (08:33→21:38)
[2016-10-24] MEDS: MIDODRINE HCL 2.5MG TABLET PO SCH ×3 (08:33→17:08)
[2016-10-24 12:00] VITALS: BP 101/72
[2016-10-24] MEDS: DUTASTERIDE 0.5MG CAPSULE PO SCH (12:06)
[2016-10-24] MEDS: SUCRALFATE 1 G/10 ML UDC PO SCH ×3 (12:06→21:39)
[2016-10-24 16:00] VITALS: BP 109/76
[2016-10-24 20:00] VITALS: BP 102/72
[2016-10-24] MEDS: CEFTRIAXONE 1 G PREMIX 50 ML IV SCH (21:38)
[2016-10-24] MEDS: TAMSULOSIN HCL 0.4MG SR CAPSULE PO SCH (21:40)
[2016-10-25] VITALS: BP 100/72
[2016-10-25 04:00] VITALS: BP 109/72
[2016-10-25] MEDS: SUCRALFATE 1 G/10 ML UDC PO SCH ×4 (06:20→20:26)
[2016-10-25 08:00] VITALS: BP 99/62
[2016-10-25] MEDS: PANTOPRAZOLE SODIUM 40 MG/VIAL IV SCH (09:15)
[2016-10-25] MEDS: ASCORBIC ACID 500 MG TABLET PO SCH ×2 (09:15→20:26)
[2016-10-25] MEDS: ZINC SULFATE 220 MG ( 50 ) CAPSULE PO SCH (09:16)
[2016-10-25] MEDS: TAMSULOSIN HCL 0.4MG SR CAPSULE PO SCH ×2 (09:25→20:27)
[2016-10-25] MEDS: DUTASTERIDE 0.5MG CAPSULE PO SCH (09:25)
[2016-10-25] MEDS: GABAPENTIN 100MG CAPSULE PO SCH ×3 (09:26→18:38)
[2016-10-25] MEDS: MIDODRINE HCL 2.5MG TABLET PO SCH ×3 (09:26→18:37)
[2016-10-25 12:00] VITALS: BP 93/70
[2016-10-25] MEDS ORDERED: LIDOCAINE HCL 1% 20ML VIAL (Pyxis) INJ ONE (14:14)
[2016-10-25] MEDS ORDERED: SODIUM BICARBONATE 4% (2.4MEQ) 5ML VIAL IV ONE (14:14)
[2016-10-25 16:00] VITALS: BP 101/71
[2016-10-25] MEDS: ALBUMIN HUMAN 25GM/100ML (25%) IV SCH ×2 (16:17→22:35)
[2016-10-25 19:33] VITALS: BP 94/77
[2016-10-25] MEDS: CEFTRIAXONE 1 G PREMIX 50 ML IV SCH (20:26)
[2016-10-26 00:11] VITALS: BP 92/59
[2016-10-26 04:17] VITALS: BP 95/64
[2016-10-26] MEDS: ALBUMIN HUMAN 25GM/100ML (25%) IV SCH (06:21)
[2016-10-26] MEDS: SUCRALFATE 1 G/10 ML UDC PO SCH ×2 (06:21→11:46)
[2016-10-26 08:00] VITALS: BP 98/59
[2016-10-26] MEDS: ZINC SULFATE 220 MG ( 50 ) CAPSULE PO SCH (09:22)
[2016-10-26] MEDS: GABAPENTIN 100MG CAPSULE PO SCH ×2 (09:23→13:09)
[2016-10-26] MEDS: MIDODRINE HCL 2.5MG TABLET PO SCH ×2 (09:23→13:09)
[2016-10-26] MEDS: ASCORBIC ACID 500 MG TABLET PO SCH (09:23)
[2016-10-26] MEDS: DUTASTERIDE 0.5MG CAPSULE PO SCH (09:23)
[2016-10-26] MEDS: TAMSULOSIN HCL 0.4MG SR CAPSULE PO SCH (09:23)
[2016-10-26] MEDS: PANTOPRAZOLE SODIUM 40 MG/VIAL IV SCH (09:29)
[2016-10-26 12:00] VITALS: BP 95/60
[2016-10-26 14:17] VITALS: BP 95/60
== END 2016-10-26 15:15 | disposition home or self-care (01) | DRG 919 ==
LOC: ER 22:39 → 6EST 10-23 05:20
PROVIDERS: ADMIT Internal Medicine; ATTEND Internal Medicine
PROC: 0W9G3ZZ Drainage of Peritoneal Cavity, Percutaneous Approach (ICD-10-PCS; principal; 2016-10-25)
DX: T81.31XA Disruption of external operation (surgical) wound, not elsewhere classified, initial encounter (principal); E43 Unspecified severe protein-calorie malnutrition; N39.0 Urinary tract infection, site not specified; E87.1 Hypo-osmolality and hyponatremia; R18.8 Other ascites; K74.60 Unspecified cirrhosis of liver; E87.5 Hyperkalemia; D63.8 Anemia in other chronic diseases classified elsewhere; Y83.8 Other surgical procedures as the cause of abnormal reaction of the patient, or of later complication, without mention of misadventure at the time of the procedure; E55.9 Vitamin D deficiency, unspecified; I10 Essential (primary) hypertension; N28.9 Disorder of kidney and ureter, unspecified; N40.0 Benign prostatic hyperplasia without lower urinary tract symptoms; Z87.891 Personal history of nicotine dependence; Z68.23 Body mass index [BMI] 23.0-23.9, adult; Y92.89 Other specified places as the place of occurrence of the external cause
CPT/HCPCS: 36415; 49083; 74176; 80053; 81001; 83605; 83690; 85025; 85610; 85730; 87040; 87077; 87086; 87186; 93005; 96361; 96365; 97162; 97165; 99285; C9113; J0696; J2543; J3490; J7030; P9047

== ENCOUNTER 2022-01-11 15:06 | Inpatient (IN) | payer MEDICARE, OTHER, MEDICAID ==
[~2022-01-11] VITALS: Ht 175.3 cm; Wt 90.7 kg
[~2022-01-11 15:06] MED LIST changes: +ACET-2708 PO; +AMLO10TA80 PO; +ASCO500C18 PO; +BISA10SU62 RC; +CARV3.1242 PO; +CINA30 PO; +CLON0.1T PO; +DAPA10TA PO; -DIPH25CA83 PO; +DOCU-150 PO; -FURO40TA5 PO; +GABA-290 MT; +MOM PO; +PROP10TA10 PO; +RIFA550T PO; -SPIR50TA26 PO; +TAMS-11 PO; +ZINC100T2 PO
[2022-01-11 16:28] LABS: BASOPHILS % 0.5 % (0.0-2.0); EOSINOPHILS % 5.8 % (0.0-5.0); HEMATOCRIT. 34.6 % (42.0-52.0); HEMOGLOBIN. 11.6 g/dL (14.0-18.0); MEAN CORPUSCULAR HEMOGLOBIN 29.2 pg (28.0-32.0); MEAN CORPUSCULAR VOLUME 86.8 fL (80.0-94.0); MEAN PLATELET VOLUME 8.1 fl (7.4-10.4); MONOCYTES % 13.2 % (2.0-8.0); NEUTROPHILS % 62.5 % (40.0-76.0); PLATELET 71 x1000/uL (130-400); RED BLOOD CELL COUNT 3.98 mill/uL (4.7-6.1); RED CELL DISTRIBUTION WIDTH 16.9 % (11.6-14.6)
[2022-01-11 16:35] LABS: CHLORIDE 108 mEq/L (98-107)
[2022-01-11 16:36] LABS: INR 1.3; PROTHROMBIN TIME 13.6 sec (9.6-11.0)
[2022-01-11] MEDS ORDERED: ASPIRIN 325MG EC TABLET PO ONE (17:15)
[2022-01-11 20:03] LABS: CLARITY URINE CLEAR (CLEAR); COLOR URINE YELLOW (YELLOW); KETONES URINE NEGATIVE (NEGATIVE); LEUKOCYTE ESTERASE URINE 3+ (NEGATIVE); NITRITE URINE NEGATIVE (NEGATIVE); OCCULT BLOOD URINE TRACE (NEGATIVE); PH URINE 6.5 (4.5-8.0); PROTEIN URINE TRACE (NEGATIVE)
[2022-01-11] MEDS ORDERED: OLANZAPINE 10 MG/VIAL IM ONE (21:15)
[2022-01-11] MEDS ORDERED: DIPHENHYDRAMINE 50MG/ML VIAL IM ONE (21:15)
[2022-01-12] MEDS ORDERED: HALOPERIDOL LACTATE 5MG/ML VIAL IM NR ×2 (02:30→16:00)
[2022-01-12] MEDS ORDERED: CLONIDINE 0.1MG TABLET PO PRN (07:45)
[2022-01-12] MEDS ORDERED: ONDANSETRON HCL 4MG/2ML INJ IV PRN (07:45)
[2022-01-12] MEDS ORDERED: ACETAMINOPHEN 325MG TABLET PO PRN (07:45)
[2022-01-12] MEDS ORDERED: MAGNESIUM/ALUMINUM HYDROXIDE/SIMETHICONE 30ML UDC PO PRN (07:45)
[2022-01-12] MEDS ORDERED: DEXTROSE 50% WATER 50ML SYRINGE IV PRN (07:45)
[2022-01-12] MEDS ORDERED: HYDROCODONE/ACETAMINOPHEN 5/325MG TABLET PO PRN (07:45)
[2022-01-12] MEDS ORDERED: ENOXAPARIN 40MG/0.4ML SYR SUBCUT SCH (07:45)
[2022-01-12] MEDS ORDERED: DOCUSATE SODIUM 100MG CAPSULE PO PRN (08:00)
[2022-01-12] MEDS ORDERED: NALOXONE HCL 0.4MG/ML VIAL IV PRN (08:45)
[2022-01-12] MEDS ORDERED: CEFTRIAXONE 1,000 MG in DEXTROSE 5% WATER 50 ML IV SCH (10:00)
[2022-01-12] MEDS ORDERED: CEFTRIAXONE 1 G PREMIX 50 ML IV NR (10:30)
[2022-01-12] MEDS: BLOOD SUGAR DIAGNOSTIC STRIP TEST SCH ×3 (11:40→21:53)
[2022-01-12 12:00] VITALS: BP 120/64
[2022-01-12] MEDS: INSULIN LISPRO 100 UNITS/ML SUBCUT SCH ×3 (12:10→21:00)
[2022-01-12] MEDS: PANTOPRAZOLE SODIUM 40 MG/VIAL IV SCH (12:11)
[2022-01-12 14:00] VITALS: BP 120/64
[2022-01-12 16:00] VITALS: BP 118/85
[2022-01-12] MEDS ORDERED: NON FORMULARY PATIENT HOME MED XX SCH ×2 (16:30)
[2022-01-12] MEDS ORDERED: LORAZEPAM 2MG/ML CPJ IV NR (17:00)
[2022-01-12] MEDS: LORAZEPAM 2MG/ML CPJ IV PRN (19:20)
[2022-01-13] VITALS: BP 114/85
[2022-01-13] MEDS: LORAZEPAM 2MG/ML CPJ IV PRN (03:10)
[2022-01-13 04:00] VITALS: BP 137/108
[2022-01-13] MEDS: BLOOD SUGAR DIAGNOSTIC STRIP TEST SCH ×4 (05:16→21:19)
[2022-01-13] MEDS: INSULIN LISPRO 100 UNITS/ML SUBCUT SCH ×4 (05:16→21:00)
[2022-01-13] MEDS: DEXTROSE 50% WATER 50ML SYRINGE IV PRN (05:17)
[2022-01-13 08:00] VITALS: BP 128/79
[2022-01-13] MEDS: PANTOPRAZOLE SODIUM 40 MG/VIAL IV SCH (08:48)
[2022-01-13] MEDS ORDERED: CEFTRIAXONE 1,000 MG in DEXTROSE 5% WATER 50 ML IV SCH (09:00)
[2022-01-13 11:54] LABS: BASOPHILS % 0.8 % (0.0-2.0); EOSINOPHILS % 8.3 % (0.0-5.0); HEMATOCRIT. 31.8 % (42.0-52.0); HEMOGLOBIN. 10.6 g/dL (14.0-18.0); LYMPHOCYTES % 19.9 % (20.0-50.0); MEAN CORPUSCULAR VOLUME 86.9 fL (80.0-94.0); MEAN PLATELET VOLUME 8.1 fl (7.4-10.4); PLATELET 87 x1000/uL (130-400); RED BLOOD CELL COUNT 3.66 mill/uL (4.7-6.1); RED CELL DISTRIBUTION WIDTH 16.9 % (11.6-14.6)
[2022-01-13 12:00] VITALS: BP 117/73
[2022-01-13 12:01] LABS: CHLORIDE 113 mEq/L (98-107)
[2022-01-13 12:12] LABS: ETHANOL BLOOD < 10 mg/dL; PHOSPHORUS 2.2 mg/dL (2.5-4.9)
[2022-01-13] MEDS: LACTULOSE 20G/30ML UDC PO SCH ×2 (15:59→21:22)
[2022-01-13] MEDS: ENOXAPARIN 80MG/0.8ML SYR SUBCUT SCH (15:59)
[2022-01-13 16:00] VITALS: BP 120/77
[2022-01-13] MEDS: CEFEPIME 1,000 MG in DEXTROSE 5% WATER 50 ML IV SCH (16:37)
[2022-01-13 20:00] VITALS: BP 129/82
[2022-01-13] MEDS: CARVEDILOL 3.125 MG TABLET PO SCH (21:21)
[2022-01-14] VITALS: BP 144/73
[2022-01-14 04:00] VITALS: BP 117/72
[2022-01-14] MEDS: LACTULOSE 20G/30ML UDC PO SCH ×3 (06:09→21:51)
[2022-01-14] MEDS: ENOXAPARIN 80MG/0.8ML SYR SUBCUT SCH ×3 (06:09→19:15)
[2022-01-14] MEDS: CEFEPIME 1,000 MG in DEXTROSE 5% WATER 50 ML IV SCH (06:09)
[2022-01-14] MEDS: INSULIN LISPRO 100 UNITS/ML SUBCUT SCH ×4 (06:11→21:00)
[2022-01-14] MEDS: BLOOD SUGAR DIAGNOSTIC STRIP TEST SCH ×4 (06:11→21:00)
[2022-01-14 07:27] LABS: BASOPHILS % 0.5 % (0.0-2.0); EOSINOPHILS % 7.6 % (0.0-5.0); HEMATOCRIT. 30.7 % (42.0-52.0); HEMOGLOBIN. 10.3 g/dL (14.0-18.0); LYMPHOCYTES % 21.8 % (20.0-50.0); MEAN CORPUSCULAR HEMOGLOBIN 29.2 pg (28.0-32.0); MEAN CORPUSCULAR VOLUME 86.7 fL (80.0-94.0); MONOCYTES % 10.8 % (2.0-8.0); NEUTROPHILS % 59.3 % (40.0-76.0); PLATELET 83 x1000/uL (130-400); RED BLOOD CELL COUNT 3.54 mill/uL (4.7-6.1); RED CELL DISTRIBUTION WIDTH 16.9 % (11.6-14.6)
[2022-01-14 07:53] LABS: CHLORIDE 111 mEq/L (98-107)
[2022-01-14 08:00] VITALS: BP 131/84
[2022-01-14] MEDS: PANTOPRAZOLE SODIUM 40 MG/VIAL IV SCH (08:45)
[2022-01-14] MEDS: CARVEDILOL 3.125 MG TABLET PO SCH ×2 (08:46→21:00)
[2022-01-14 12:00] VITALS: BP 115/61
[2022-01-14] MEDS ORDERED: POTASSIUM CHLORIDE 20MEQ TABLET SR PO NR (13:00)
[2022-01-14] MEDS: RISPERIDONE 0.5MG TABLET PO SCH (13:34)
[2022-01-14] MEDS: LORAZEPAM 2MG/ML CPJ IV PRN (13:36)
[2022-01-14] MEDS ORDERED: MAGNESIUM 2 G PREMIX 50 ML IV NR (15:00)
[2022-01-14 16:00] VITALS: BP 129/69
[2022-01-14] MEDS: MEROPENEM 1000MG in NORMAL SALINE 100ML IV SCH ×2 (16:47→21:51)
[2022-01-14 20:20] VITALS: BP 145/70
[2022-01-15] MEDS: LACTULOSE 20G/30ML UDC PO SCH ×3 (05:45→21:47)
[2022-01-15] MEDS: MEROPENEM 1000MG in NORMAL SALINE 100ML IV SCH ×3 (05:45→22:30)
[2022-01-15] MEDS: ENOXAPARIN 80MG/0.8ML SYR SUBCUT SCH ×2 (05:59→17:00)
[2022-01-15] MEDS: BLOOD SUGAR DIAGNOSTIC STRIP TEST SCH ×4 (06:41→21:41)
[2022-01-15] MEDS: INSULIN LISPRO 100 UNITS/ML SUBCUT SCH ×4 (06:41→21:00)
[2022-01-15 06:53] LABS: BASOPHILS % 0.7 % (0.0-2.0); EOSINOPHILS % 7.3 % (0.0-5.0); HEMATOCRIT. 31.6 % (42.0-52.0); HEMOGLOBIN. 10.7 g/dL (14.0-18.0); LYMPHOCYTES % 22.8 % (20.0-50.0); MEAN CORPUSCULAR HEMOGLOBIN 29.2 pg (28.0-32.0); MEAN CORPUSCULAR VOLUME 85.9 fL (80.0-94.0); MEAN PLATELET VOLUME 8.6 fl (7.4-10.4); MONOCYTES % 10.9 % (2.0-8.0); NEUTROPHILS % 58.3 % (40.0-76.0); PLATELET 95 x1000/uL (130-400); RED BLOOD CELL COUNT 3.68 mill/uL (4.7-6.1)
[2022-01-15 07:03] LABS: INR 1.2; PROTHROMBIN TIME 13.1 sec (9.6-11.0)
[2022-01-15 07:15] LABS: CHLORIDE 110 mEq/L (98-107)
[2022-01-15 08:00] VITALS: BP 128/73
[2022-01-15] MEDS: RISPERIDONE 0.5MG TABLET PO SCH ×2 (09:10→17:01)
[2022-01-15] MEDS: PANTOPRAZOLE SODIUM 40 MG/VIAL IV SCH (09:10)
[2022-01-15 12:00] VITALS: BP 126/73
[2022-01-15 16:00] VITALS: BP 100/64
[2022-01-15 20:00] VITALS: BP 121/61
[2022-01-15] MEDS: CARVEDILOL 6.25 MG TABLET PO SCH (21:00)
[2022-01-16] VITALS: BP 129/99
[2022-01-16 04:00] VITALS: BP 136/91
[2022-01-16] MEDS: LACTULOSE 20G/30ML UDC PO SCH ×3 (06:00→22:11)
[2022-01-16] MEDS: MEROPENEM 1000MG in NORMAL SALINE 100ML IV SCH ×3 (06:24→22:11)
[2022-01-16] MEDS: ENOXAPARIN 80MG/0.8ML SYR SUBCUT SCH ×2 (07:01→17:01)
[2022-01-16] MEDS: INSULIN LISPRO 100 UNITS/ML SUBCUT SCH ×4 (07:10→21:00)
[2022-01-16] MEDS: BLOOD SUGAR DIAGNOSTIC STRIP TEST SCH ×4 (07:23→21:00)
[2022-01-16 08:00] VITALS: BP 134/77
[2022-01-16] MEDS: RISPERIDONE 0.5MG TABLET PO SCH (09:22)
[2022-01-16] MEDS: PANTOPRAZOLE SODIUM 40 MG/VIAL IV SCH (09:22)
[2022-01-16] MEDS: CARVEDILOL 6.25 MG TABLET PO SCH ×2 (09:22→21:00)
[2022-01-16 12:00] VITALS: BP 112/62
[2022-01-16 16:00] VITALS: BP 121/62
[2022-01-16 20:00] VITALS: BP 116/74
[2022-01-16] MEDS: RISPERIDONE 1MG TABLET PO SCH (22:11)
[2022-01-17] VITALS: BP 146/84
[2022-01-17 04:00] VITALS: BP 138/82
[2022-01-17] MEDS: MEROPENEM 1000MG in NORMAL SALINE 100ML IV SCH ×3 (05:38→22:20)
[2022-01-17] MEDS: LACTULOSE 20G/30ML UDC PO SCH ×3 (06:04→22:00)
[2022-01-17] MEDS: BLOOD SUGAR DIAGNOSTIC STRIP TEST SCH ×4 (06:05→21:00)
[2022-01-17] MEDS: INSULIN LISPRO 100 UNITS/ML SUBCUT SCH ×4 (06:05→21:00)
[2022-01-17] MEDS: ENOXAPARIN 80MG/0.8ML SYR SUBCUT SCH ×2 (06:05→18:00)
[2022-01-17 06:35] LABS: CHLORIDE 114 mEq/L (98-107)
[2022-01-17 07:08] LABS: HEMATOCRIT 33.8 % (42.0-52.0); HEMOGLOBIN 11.5 g/dL (14.0-18.0); MEAN CORPUSCULAR HEMOGLOBIN 29.4 pg (28.0-32.0); MEAN CORPUSCULAR VOLUME 86.6 fL (80.0-94.0); PLATELET 113 x1000/uL (130-400); RED CELL DISTRIBUTION WIDTH 16.9 % (11.6-14.6)
[2022-01-17 08:00] VITALS: BP 135/84
[2022-01-17] MEDS: RISPERIDONE 1MG TABLET PO SCH ×2 (08:47→22:20)
[2022-01-17] MEDS: PANTOPRAZOLE SODIUM 40 MG/VIAL IV SCH (08:47)
[2022-01-17] MEDS: CARVEDILOL 6.25 MG TABLET PO SCH ×2 (08:47→22:20)
[2022-01-17 12:00] VITALS: BP 110/68
[2022-01-17 16:00] VITALS: BP 111/64
[2022-01-17 20:00] VITALS: BP 138/82
[2022-01-18] VITALS: BP 144/78
[2022-01-18] MEDS: INSULIN LISPRO 100 UNITS/ML SUBCUT SCH ×4 (07:10→21:00)
[2022-01-18 08:00] VITALS: BP 124/70
[2022-01-18] MEDS: CARVEDILOL 6.25 MG TABLET PO SCH ×2 (09:00→21:00)
[2022-01-18] MEDS: RISPERIDONE 1MG TABLET PO SCH ×2 (11:41→22:01)
[2022-01-18 12:00] VITALS: BP 121/70
[2022-01-18] MEDS: BLOOD SUGAR DIAGNOSTIC STRIP TEST SCH ×3 (12:15→21:00)
[2022-01-18] MEDS: LACTULOSE 20G/30ML UDC PO SCH (15:09)
[2022-01-18 16:00] VITALS: BP 97/77
[2022-01-18 20:00] VITALS: BP 128/74
[2022-01-18] MEDS: ENOXAPARIN 100MG/ML SYR SUBCUT SCH (22:00)
[2022-01-19] VITALS: BP 150/85
[2022-01-19 04:00] VITALS: BP 143/75
[2022-01-19] MEDS: LACTULOSE 20G/30ML UDC PO SCH ×3 (06:00→20:14)
[2022-01-19] MEDS: BLOOD SUGAR DIAGNOSTIC STRIP TEST SCH ×4 (06:40→20:14)
[2022-01-19] MEDS: INSULIN LISPRO 100 UNITS/ML SUBCUT SCH ×4 (07:10→20:14)
[2022-01-19 08:00] VITALS: BP 124/83
[2022-01-19] MEDS: CARVEDILOL 6.25 MG TABLET PO SCH ×2 (09:00→20:13)
[2022-01-19] MEDS: ENOXAPARIN 100MG/ML SYR SUBCUT SCH ×2 (09:56→20:14)
[2022-01-19] MEDS: RISPERIDONE 1MG TABLET PO SCH ×2 (09:56→20:13)
[2022-01-19] MEDS: PANTOPRAZOLE SODIUM 40 MG/VIAL IV SCH ×2 (10:48→10:51)
[2022-01-19] MEDS: MEROPENEM 1000MG in NORMAL SALINE 100ML IV SCH ×2 (10:48→10:51)
[2022-01-19 12:00] VITALS: BP 114/38
[2022-01-19 16:00] VITALS: BP 109/76
[2022-01-19 20:00] VITALS: BP 107/82
[2022-01-20] VITALS: BP 147/79
[2022-01-20 04:00] VITALS: BP 107/58
[2022-01-20] MEDS: BLOOD SUGAR DIAGNOSTIC STRIP TEST SCH ×4 (06:30→20:14)
[2022-01-20] MEDS: LACTULOSE 20G/30ML UDC PO SCH ×3 (06:30→20:14)
[2022-01-20] MEDS: INSULIN LISPRO 100 UNITS/ML SUBCUT SCH ×4 (06:30→20:14)
[2022-01-20 08:00] VITALS: BP 119/80
[2022-01-20] MEDS: CARVEDILOL 6.25 MG TABLET PO SCH ×2 (08:50→20:13)
[2022-01-20] MEDS: RISPERIDONE 1MG TABLET PO SCH (08:50)
[2022-01-20] MEDS: ENOXAPARIN 100MG/ML SYR SUBCUT SCH ×2 (08:51→20:15)
[2022-01-20] MEDS: PANTOPRAZOLE SODIUM 40 MG/VIAL IV SCH (08:51)
[2022-01-20 12:00] VITALS: BP 120/76
[2022-01-20 16:00] VITALS: BP 110/78
[2022-01-20 20:00] VITALS: BP 109/69
[2022-01-20] MEDS ORDERED: RISPERIDONE 1MG TABLET PO SCH (21:00)
[2022-01-21] VITALS: BP 145/81
[2022-01-21 04:00] VITALS: BP 118/61
[2022-01-21] MEDS: LACTULOSE 20G/30ML UDC PO SCH ×3 (05:09→20:59)
[2022-01-21] MEDS: BLOOD SUGAR DIAGNOSTIC STRIP TEST SCH ×4 (06:14→20:39)
[2022-01-21] MEDS: INSULIN LISPRO 100 UNITS/ML SUBCUT SCH ×4 (06:15→20:39)
[2022-01-21 07:46] LABS: CHLORIDE 107 mEq/L (98-107)
[2022-01-21 07:47] LABS: HEMATOCRIT 34.4 % (42.0-52.0); HEMOGLOBIN 11.7 g/dL (14.0-18.0); MEAN CORPUSCULAR HEMOGLOBIN 29.5 pg (28.0-32.0); MEAN CORPUSCULAR VOLUME 86.9 fL (80.0-94.0); PLATELET 88 x1000/uL (130-400); RED BLOOD CELL COUNT 3.95 mill/uL (4.7-6.1); RED CELL DISTRIBUTION WIDTH 17.1 % (11.6-14.6)
[2022-01-21 08:00] VITALS: BP 129/71
[2022-01-21] MEDS: ENOXAPARIN 100MG/ML SYR SUBCUT SCH ×2 (10:36→20:42)
[2022-01-21] MEDS: CARVEDILOL 6.25 MG TABLET PO SCH ×2 (10:36→20:39)
[2022-01-21] MEDS: PANTOPRAZOLE SODIUM 40 MG/VIAL IV SCH (10:36)
[2022-01-21 12:00] VITALS: BP 120/77
[2022-01-21 16:00] VITALS: BP 106/67
[2022-01-21 20:00] VITALS: BP 132/81
[2022-01-21] MEDS ORDERED: RISPERIDONE 1MG TABLET PO SCH (21:00)
[2022-01-22] VITALS: BP 147/81
[2022-01-22] MEDS: INSULIN LISPRO 100 UNITS/ML SUBCUT SCH ×4 (05:58→20:16)
[2022-01-22] MEDS: BLOOD SUGAR DIAGNOSTIC STRIP TEST SCH ×4 (05:58→20:15)
[2022-01-22] MEDS: LACTULOSE 20G/30ML UDC PO SCH ×3 (05:59→20:58)
[2022-01-22 08:00] VITALS: BP 141/72
[2022-01-22] MEDS: CARVEDILOL 6.25 MG TABLET PO SCH ×2 (09:00→20:49)
[2022-01-22] MEDS: PANTOPRAZOLE SODIUM 40 MG/VIAL IV SCH (10:10)
[2022-01-22 10:21] LABS: HEMATOCRIT 32.8 % (42.0-52.0); HEMOGLOBIN 10.9 g/dL (14.0-18.0); MEAN CORPUSCULAR HEMOGLOBIN 28.8 pg (28.0-32.0); MEAN CORPUSCULAR VOLUME 86.6 fL (80.0-94.0); PLATELET 82 x1000/uL (130-400); RED BLOOD CELL COUNT 3.79 mill/uL (4.7-6.1); RED CELL DISTRIBUTION WIDTH 16.9 % (11.6-14.6)
[2022-01-22] MEDS: ENOXAPARIN 100MG/ML SYR SUBCUT SCH ×2 (10:27→20:59)
[2022-01-22 12:00] VITALS: BP 119/74
[2022-01-22] MEDS ORDERED: LORAZEPAM 0.5MG TABLET PO PRN (14:00)
[2022-01-22 16:00] VITALS: BP 110/47
[2022-01-22 20:00] VITALS: BP 106/56
[2022-01-22] MEDS: RISPERIDONE 0.5MG TABLET PO SCH (20:59)
[2022-01-23] VITALS: BP 123/61
[2022-01-23 04:00] VITALS: BP 159/91
[2022-01-23] MEDS: BLOOD SUGAR DIAGNOSTIC STRIP TEST SCH ×4 (05:36→21:00)
[2022-01-23] MEDS: LACTULOSE 20G/30ML UDC PO SCH ×3 (05:36→22:21)
[2022-01-23] MEDS: INSULIN LISPRO 100 UNITS/ML SUBCUT SCH ×4 (07:10→21:00)
[2022-01-23 07:52] LABS: BASOPHILS % 0.6 % (0.0-2.0); EOSINOPHILS % 6.8 % (0.0-5.0); HEMATOCRIT. 32.5 % (42.0-52.0); HEMOGLOBIN. 11.1 g/dL (14.0-18.0); LYMPHOCYTES % 39.3 % (20.0-50.0); MEAN CORPUSCULAR HEMOGLOBIN 29.3 pg (28.0-32.0); MEAN CORPUSCULAR VOLUME 85.8 fL (80.0-94.0); MONOCYTES % 11.6 % (2.0-8.0); NEUTROPHILS % 41.7 % (40.0-76.0); PLATELET 82 x1000/uL (130-400); RED BLOOD CELL COUNT 3.79 mill/uL (4.7-6.1); RED CELL DISTRIBUTION WIDTH 16.7 % (11.6-14.6)
[2022-01-23 08:00] VITALS: BP 132/74
[2022-01-23] MEDS: PANTOPRAZOLE SODIUM 40 MG/VIAL IV SCH (08:48)
[2022-01-23] MEDS: ENOXAPARIN 100MG/ML SYR SUBCUT SCH ×2 (08:49→22:22)
[2022-01-23] MEDS: CARVEDILOL 6.25 MG TABLET PO SCH ×2 (08:50→21:00)
[2022-01-23 12:00] VITALS: BP 126/69
[2022-01-23 16:00] VITALS: BP 116/71
[2022-01-23 20:00] VITALS: BP 123/61
[2022-01-23] MEDS: RISPERIDONE 0.5MG TABLET PO SCH (21:00)
[2022-01-24] VITALS (11 sets, daily range): BP systolic 110–153; BP diastolic 58–90
[2022-01-24] MEDS: LACTULOSE 20G/30ML UDC PO SCH ×3 (06:00→21:05)
[2022-01-24] MEDS: BLOOD SUGAR DIAGNOSTIC STRIP TEST SCH ×4 (06:13→20:43)
[2022-01-24] MEDS: INSULIN LISPRO 100 UNITS/ML SUBCUT SCH ×4 (06:14→20:43)
[2022-01-24] MEDS: PANTOPRAZOLE SODIUM 40 MG/VIAL IV SCH (09:37)
[2022-01-24] MEDS: CARVEDILOL 6.25 MG TABLET PO SCH ×2 (09:37→20:54)
[2022-01-24] MEDS ORDERED: IOHEXOL-300 100 ML BOTTLE ONE (10:38)
[2022-01-24] MEDS ORDERED: CEFAZOLIN 1000MG PREMIX 50 ML IV NR (10:45)
[2022-01-24] MEDS ORDERED: IOHEXOL-300 50 ML BOTTLE IV ONE (10:54)
[2022-01-24] MEDS: DEXTROSE 50% WATER 50ML SYRINGE IV PRN (12:03)
[2022-01-24] MEDS: RISPERIDONE 0.5MG TABLET PO SCH (20:53)
[2022-01-25] VITALS: BP 107/86
[2022-01-25 04:00] VITALS: BP 149/85
[2022-01-25] MEDS: LACTULOSE 20G/30ML UDC PO SCH ×3 (05:29→23:53)
[2022-01-25] MEDS: BLOOD SUGAR DIAGNOSTIC STRIP TEST SCH ×4 (05:54→20:36)
[2022-01-25] MEDS: DEXTROSE 50% WATER 50ML SYRINGE IV PRN (06:01)
[2022-01-25] MEDS: INSULIN LISPRO 100 UNITS/ML SUBCUT SCH ×4 (06:15→20:37)
[2022-01-25 08:00] VITALS: BP 130/74
[2022-01-25] MEDS: CARVEDILOL 6.25 MG TABLET PO SCH (09:00)
[2022-01-25] MEDS: PANTOPRAZOLE SODIUM 40 MG/VIAL IV SCH (09:00)
[2022-01-25 12:00] VITALS: BP 134/56
[2022-01-25] MEDS: LOSARTAN POTASSIUM 25 MG TABLET PO SCH (14:58)
[2022-01-25 16:00] VITALS: BP 135/65
[2022-01-25 20:30] VITALS: BP 128/62
[2022-01-25] MEDS: CARVEDILOL 3.125 MG TABLET PO SCH (20:40)
[2022-01-25] MEDS: RISPERIDONE 0.5MG TABLET PO SCH (20:53)
[2022-01-26] VITALS: BP 133/62
[2022-01-26] MEDS ORDERED: ENOX40SY27 SQ (00:26)
[2022-01-26] MEDS ORDERED: NA PHOS,M-B/NA PHOS,DI-BA ENEMA 118ML PR NR (00:45)
[2022-01-26 00:46] VITALS: BP 133/62
[2022-01-26 04:00] VITALS: BP 112/62
[2022-01-26] MEDS: BLOOD SUGAR DIAGNOSTIC STRIP TEST SCH ×2 (06:08→11:53)
[2022-01-26] MEDS: INSULIN LISPRO 100 UNITS/ML SUBCUT SCH ×2 (07:10→11:53)
[2022-01-26 08:00] VITALS: BP 150/89
[2022-01-26] MEDS: LACTULOSE 20G/30ML UDC PO SCH (08:29)
[2022-01-26] MEDS: LOSARTAN POTASSIUM 25 MG TABLET PO SCH (08:33)
[2022-01-26] MEDS: PANTOPRAZOLE SODIUM 40 MG/VIAL IV SCH (08:33)
[2022-01-26] MEDS: CARVEDILOL 3.125 MG TABLET PO SCH (08:33)
[2022-01-26 09:53] VITALS: BP 150/89
[2022-01-26 11:45] VITALS: BP 135/76
== END 2022-01-26 12:00 | DRG 71 ==
LOC: ER 15:06 → MICUSO 19:02 → EDBEDREQ 19:05 → EDBEDREQTM 19:05 → 7EST 01-12 07:56 → UNDODISIN 01-22 16:10
PROVIDERS: ADMIT Internal Medicine; ATTEND Internal Medicine
PROC: 06H03DZ Insertion of Intraluminal Device into Inferior Vena Cava, Percutaneous Approach (ICD-10-PCS; principal; 2022-01-24)
DX: G93.41 Metabolic encephalopathy (principal); E44.1 Mild protein-calorie malnutrition; I82.432 Acute embolism and thrombosis of left popliteal vein; E72.20 Disorder of urea cycle metabolism, unspecified; I42.9 Cardiomyopathy, unspecified; N39.0 Urinary tract infection, site not specified; D69.6 Thrombocytopenia, unspecified; E16.2 Hypoglycemia, unspecified; E21.0 Primary hyperparathyroidism; F03.90 Unspecified dementia, unspecified severity, without behavioral disturbance, psychotic disturbance, mood disturbance, and anxiety; K74.60 Unspecified cirrhosis of liver; K80.20 Calculus of gallbladder without cholecystitis without obstruction; N40.0 Benign prostatic hyperplasia without lower urinary tract symptoms; D64.9 Anemia, unspecified; E87.6 Hypokalemia; I11.0 Hypertensive heart disease with heart failure; I48.91 Unspecified atrial fibrillation; I50.9 Heart failure, unspecified; F41.9 Anxiety disorder, unspecified; Z68.29 Body mass index [BMI] 29.0-29.9, adult; Z82.49 Family history of ischemic heart disease and other diseases of the circulatory system; Z87.440 Personal history of urinary (tract) infections; Z95.810 Presence of automatic (implantable) cardiac defibrillator; Z87.442 Personal history of urinary calculi; Z78.1 Physical restraint status
CPT/HCPCS: 36415; 37191; 71045; 76770; 80048; 80053; 80076; 80320; 81003; 82140; 82962; 83036; 83735; 83880; 84100; 84484; 85025; 85027; 85049; 87077; 87186; 87426; 93005; 93970; 99291; C1769; C1880; C1893; C9113; C9803; J0690; J0692; J0696; J1200; J1630; J1644; J1650; J2060; J2185; J3475; J3490; J7060; Q9967; G0480